=== PATIENT | male | born 1930 | race Hispanic/Latino ===

== ENCOUNTER → 2017-04-10 | Outpatient (CLI) | payer MEDICARE ==
--- NOTE | 2017-04-10 15:05 | Diagnostic Imaging Report ---
PROCEDURE:US RETROPERITONEAL ( KIDNEY ). COMPARISON:Patients [facility], CT, CT ABDOMEN/PELVIS WOW, 08/07/2016, 13:00. INDICATIONS:NEOPLASM OF KIDNEY TECHNIQUE: [place]-scale and color sonographic images of the bilateral kidneys and bladder where obtained in transverse and longitudinal planes. FINDINGS: RIGHT KIDNEY: 9.6 cm, cortex 1.5 cm Cysts: None Solid masses: None Stones: 5 mm echogenic, non-shadowing focus in the mid aspect of the right kidney, which may represent a nonobstructing calculus. Hydronephrosis: None Echogenicity: Normal LEFT KIDNEY: 12.1 cm, cortex 1.8 cm Cysts: 4.2 x 4.1 x 3.4 cm cystic, anechoic, partially cystic lesion in the inferior pole (previously measured approximately 4.7 x 5.0 x [address] 08/07/2016 Solid masses: None Stones: None Hydronephrosis: None Echogenicity: Normal Bladder: Mild to moderate wall thickening, without focal lesions. Stable 1.0 cm right lateral wall focal outpouching consistent with a diverticulum. Prevoid bladder volume 289.1 mL. Post void bladder volume 46.6 mL Prostate: The prostate is moderately to markedly enlarged and the superior aspect protrudes into the inferior bladder lumen. CONCLUSION: 1. Normal bilateral renal echogenicity. No hydronephrosis or obstruction. Discrepancy in renal sizes is secondary to presence of large cyst in the inferior pole of the left kidney. 2. A 4.2 cm simple cyst in the inferior pole of the left kidney is likely stable, given the differences in modalities. 3. 5 mm echogenic focus in the right kidney may represent a nonobstructing calculus. 4. Mild to moderate wall thickening in the bladder, likely secondary to bladder outlet obstruction from a moderately to markedly enlarged prostate. 5. No significant postvoid residual. Alden Jones M.D. Dictated by: Alden Jones M.D. on 04/10/2017 at 15:04 Electronically approved by: Alden Jones M.D. on 04/10/2017 at 15:04
== END ==
LOC: US 12:11
PROVIDERS: ATTEND Urology
DX: D41.01 Neoplasm of uncertain behavior of right kidney (principal)
CPT/HCPCS: 76770